=== PATIENT | male | born 1935 | race Caucasian/White ===

== ENCOUNTER 2017-08-27 19:58 | Emergency (ER) | payer MEDICARE, OTHER ==
[~2017-08-27] VITALS: Ht 177.8 cm; Wt 102.1 kg
--- NOTE | ~2017-08-27 | EKG ---
[place], [place] ELECTROCARDIOGRAM REPORT NAME: JACY GIORN UNIT #: [id number] ROOM: DOCTOR: EPIPHANY DRAFT REPORT BIRTHDATE: [birth year] [facility] Test Date: 2017-08-27 Test Time: 20:26:53 Pat Name: JACY GIRON Department: ER Room: 2 Gender: M Head Banquet Waiter/Waitress: : [id number] Requested By: ARMANI WOODWARD Order Number: [id number] Reading MD: Ozzie Lake MD Measurements Intervals [place] Rate: 89 P: [place]: QRS: -18 QRSD: 99 T: 31 QT: 372 QTc: 453 Interpretive Statements Atrial fibrillation Inferior infarct, old Electronically Signed On 08-29-2017 11:08:08 PDT by Ozzie Lake MD CM:EKGRPT:ELECTROCARDIOGRAM REPORT 25 1108 ARMANI WOODWARD MD EPIPHANY DRAFT REPORT ARMANI WOODWARD MD
[~2017-08-27 19:58] MED LIST: CLARITIN10 MG PO; EPI EZ PEN1 MG/ML IM
[2017-08-27 20:37] LABS: BASO % 0.6 % (0.0-1.0); EOS # 0.2 10*3/uL (0.0-0.4); EOS % 2.6 % (1.0-4.0); HEMATOCRIT 43.4 % (42.0-52.0); HEMOGLOBIN 14.3 g/dl (14.0-18.0); LYMPH # 1.8 10*3/uL (1.3-4.4); LYMPH % 25.3 % (27.0-41.0); MEAN CELL VOLUME 93.7 fl (80.0-94.0); MEAN CORPUSCULAR HGB 30.9 pg (27.0-31.0); MEAN CORPUSCULAR HGB CONC 32.9 g/dl (33.0-37.0); MEAN PLATELET VOLUME 9.7 fl (9.6-12.3); MONO # 0.7 10*3/uL (0.1-1.0); MONO % 9.7 % (3.0-9.0); NEUT # 4.3 10*3/uL (2.3-7.9); NEUT % 61.5 % (47.0-73.0); PLATELET COUNT AUTOMATED 156 10*3/uL (130-400); RED BLOOD COUNT 4.63 10*6/uL (4.50-5.90); RED CELL DISTRI WIDTH 13.3 % (0-14.5)
[2017-08-27 20:53] LABS: ALBUMIN 3.6 gm/dl (3.1-4.5); ALKALINE PHOSPHATASE 75 U/L (45-117); BUN 32 mg/dl (7-24); CHLORIDE 101 mmol/L (98-107); CREATININE 1.48 mg/dL (0.70-1.30); POTASSIUM 3.8 mmol/L (3.5-5.1); SGOT/AST 17 IU/L (3-35); SGPT/ALT 19 U/L (12-78); SODIUM 140 mmol/L (136-145); TOTAL PROTEIN 7.5 gm/dL (6.4-8.2)
[2017-08-27 20:54] LABS: TROPONIN I < 0.015 ng/ml (<0.045)
== END 2017-08-27 22:19 | disposition home or self-care (01) ==
LOC: ED 19:58
PROVIDERS: Emergency Medicine Emergency Medical Services
DX: S40.022A Contusion of left upper arm, initial encounter (principal); S80.212A Abrasion, left knee, initial encounter; I48.91 Unspecified atrial fibrillation; Z79.02 Long term (current) use of antithrombotics/antiplatelets; Z91.040 Latex allergy status; W01.0XXA Fall on same level from slipping, tripping and stumbling without subsequent striking against object, initial encounter; Y93.89 Activity, other specified; Y92.481 Parking lot as the place of occurrence of the external cause; Y99.8 Other external cause status

== ENCOUNTER 2020-09-08 02:04 | Inpatient (IN) | payer MEDICARE, OTHER ==
[~2020-09-08] VITALS: Ht 167.6 cm; Wt 105.4 kg
[2020-09-08 02:09] VITALS: BP 169/78
[2020-09-08 02:32] VITALS: BP 156/74
[2020-09-08 03:00] LABS: BASO % 0.4 % (0.0-1.0); EOS # 0.4 10*3/uL (0.0-0.4); HEMATOCRIT 41.6 % (42.0-52.0); LYMPH # 2.1 10*3/uL (1.3-4.4); LYMPH % 29.8 % (27.0-41.0); MEAN CELL VOLUME 96.3 fl (80.0-94.0); MEAN CORPUSCULAR HGB 31.3 pg (27.0-31.0); MEAN CORPUSCULAR HGB CONC 32.5 g/dl (33.0-37.0); MONO # 0.8 10*3/uL (0.1-1.0); MONO % 11.9 % (3.0-9.0); NEUT # 3.7 10*3/uL (2.3-7.9); NEUT % 52.5 % (47.0-73.0); PLATELET COUNT AUTOMATED 146 10*3/uL (130-400); RED BLOOD COUNT 4.32 10*6/uL (4.50-5.90); RED CELL DISTRI WIDTH 13.8 % (0-14.5)
[2020-09-08 03:26] VITALS: BP 146/67
[2020-09-08 03:29] LABS: ALBUMIN 3.3 gm/dl (3.1-4.5); ALKALINE PHOSPHATASE 81 U/L (45-117); BUN 28 mg/dl (7-24); CHLORIDE 107 mmol/L (98-107); POTASSIUM 3.8 mmol/L (3.5-5.1); SGOT/AST 15 IU/L (3-35); SGPT/ALT 15 U/L (12-78); SODIUM 140 mmol/L (136-145); TOTAL PROTEIN 7.2 gm/dL (6.4-8.2)
[2020-09-08 03:33] LABS: TROPONIN I < 0.015 ng/ml (<0.045)
[2020-09-08] MEDS ORDERED: TIMOLOL 5 ML5 ML OPH (05:40)
[2020-09-08] MEDS ORDERED: LATANOPROST2.5 ML OU (05:44)
[2020-09-08] MEDS ORDERED: Coumadin2.5 MG PO (05:45)
[2020-09-08] MEDS ORDERED: LASIX40 MG PO (05:45)
[2020-09-08] MEDS ORDERED: LOPRESSOR25 MG PO (05:46)
[2020-09-08 06:26] LABS: ACT PARTIAL THROMBO TIME 31.7 SECONDS (20.0-32.1); INTERNATIONAL NORM RATIO 1.9 (2.0-3.5)
[2020-09-08 06:29] LABS: FREE T4 0.88 ng/dl (0.76-1.46); THYROID STIM HORMONE (HS) 3.62 uIU/ml (0.358-4.75)
[2020-09-08 08:05] VITALS: BP 174/60
[2020-09-08 08:37] LABS: VITAMIN D, 25-HYDROXY 25.6 ng/mL (30-100)
[2020-09-08 10:55] VITALS: BP 134/89
[2020-09-08] MEDS ORDERED: IMDUR SA30 MG PO ×2 (13:28→13:30)
== END 2020-09-08 13:44 | disposition home or self-care (01) | DRG 392 ==
LOC: ED 02:04 → EDHOLD 03:46 → 5E 04:32
PROVIDERS: Emergency Medicine; Internal Medicine; ADMIT Internal Medicine; ATTEND Internal Medicine
DX: K21.9 Gastro-esophageal reflux disease without esophagitis (principal); I48.20 Chronic atrial fibrillation, unspecified; I25.10 Atherosclerotic heart disease of native coronary artery without angina pectoris; R00.1 Bradycardia, unspecified; D64.9 Anemia, unspecified; N18.31 Chronic kidney disease, stage 3a; I12.9 Hypertensive chronic kidney disease with stage 1 through stage 4 chronic kidney disease, or unspecified chronic kidney disease; E78.5 Hyperlipidemia, unspecified; R73.9 Hyperglycemia, unspecified; R07.89 Other chest pain; I25.2 Old myocardial infarction; Z79.82 Long term (current) use of aspirin; Z79.899 Other long term (current) drug therapy; Z95.5 Presence of coronary angioplasty implant and graft; Z84.89 Family history of other specified conditions; Z68.33 Body mass index [BMI] 33.0-33.9, adult

== ENCOUNTER 2022-04-21 14:00 | Emergency (ER) | payer MEDICARE, OTHER ==
[~2022-04-21] VITALS: Ht 177.8 cm; Wt 104.3 kg
[~2022-04-21 14:00] MED LIST changes: +Coumadin2.5 MG PO; +IMDUR SA30 MG PO; +LASIX40 MG PO; +LATANOPROST2.5 ML OU; +LOPRESSOR25 MG PO; +TIMOLOL 5 ML5 ML OPH
[2022-04-21] MEDS ORDERED: CYCLOBENZAPRINE10 MG PO (15:08)
[2022-04-21] MEDS ORDERED: TRAMADOL HCL50 MG PO (15:08)
== END 2022-04-21 15:25 | disposition home or self-care (01) ==
LOC: ED 14:00
DX: M54.50 Low back pain, unspecified (principal); Z98.890 Other specified postprocedural states

== ENCOUNTER 2024-11-02 11:13 | Inpatient (IN) | payer MEDICARE, OTHER ==
[2024-11-02] VITALS (7 sets, daily range): BP systolic 126–194; BP diastolic 45–97
[~2024-11-02] VITALS: Ht 177.8 cm; Wt 110.9 kg
[~2024-11-02 11:13] MED LIST changes: +CYCLOBENZAPRINE10 MG PO; +TRAMADOL HCL50 MG PO
[2024-11-02] MEDS ORDERED: Vancomycin Hydrochloride 1,000 MG VIAL IV SCH (12:00)
[2024-11-02 12:32] LABS: BASO # 0.0 10*3/uL (0.0-0.1); BASO % 0.2 % (0.0-1.0); EOS # 0.3 10*3/uL (0.0-0.4); EOS % 3.6 % (1.0-4.0); MEAN CELL VOLUME 95.1 fl (80.0-94.0); MEAN CORPUSCULAR HGB 29.5 pg (27.0-31.0); MEAN PLATELET VOLUME 9.5 fl (9.6-12.3); MONO # 1.1 10*3/uL (0.1-1.0); MONO % 12.0 % (3.0-9.0); NEUT # 6.2 10*3/uL (2.3-7.9); NEUT % 70.4 % (47.0-73.0); NUCLEATED RED BLOOD CELL 0.0 % (0.0-0.0); NUCLEATED RED BLOOD CELL 0.0 10*3/uL (0.0-0.0); PLATELET COUNT AUTOMATED 154 10*3/uL (130-400); RED CELL DISTRI WIDTH 16.6 % (0-14.5)
[2024-11-02 12:43] LABS: ACT PARTIAL THROMBO TIME 33.6 SECONDS (20.0-32.1)
[2024-11-02 13:07] LABS: BUN 19 mg/dl (9-23); SGPT/ALT 10 U/L (5-49)
[2024-11-02] MEDS ORDERED: BISACODYL 5 MG TAB PO PRN (13:30)
[2024-11-02] MEDS ORDERED: ACETAMINOPHEN 325 MG TAB PO PRN (13:30)
[2024-11-02] MEDS ORDERED: Acetaminophen/Hydrocodone 5 MG/325 MG TABLET PO PRN (13:30)
[2024-11-02] MEDS ORDERED: ACETAMINOPHEN 650 MG SUPP R PRN (13:30)
[2024-11-02] MEDS ORDERED: BISACODYL 10 MG SUPP R PRN (13:30)
[2024-11-02] MEDS ORDERED: Ondansetron Hydrochloride 4 MG/2 ML VIAL IV PRN (13:30)
[2024-11-02] MEDS ORDERED: ASPIRIN ADULT L81 M2 PO (15:15)
[2024-11-02] MEDS ORDERED: Coumadin3 MG PO (15:22)
[2024-11-02] MEDS ORDERED: ALDACTONE25 M1 PO (15:22)
[2024-11-02] MEDS ORDERED: LIPITOR10 MG PO (15:25)
[2024-11-02] MEDS ORDERED: HYDROCODONE-AC1 EAC1 PO (15:25)
[2024-11-02] MEDS ORDERED: PROBIOTIC250 MG PO (15:26)
[2024-11-02] MEDS ORDERED: ACETAMINOPHEN500 M4 PO (15:29)
[2024-11-02] MEDS ORDERED: Ondansetron4 MG PO (15:31)
[2024-11-02] MEDS ORDERED: ARTHRITIS PAIN150 G1 T (15:31)
[2024-11-02] MEDS ORDERED: MIRALAX POWDER17 G1 PO (15:32)
[2024-11-02 17:57] LABS: BILIRUBIN Negative (Negative); BLOOD 2+ (Negative); CLARITY Clear (Clear); COLOR Yellow (Yellow); KETONE Negative (Negative); LEUKO ESTERASE Negative (Negative); NITRITE Negative (Negative); PH 6.0 (4.5-8.0); SPECIFIC GRAVITY 1.025 (1.001-1.030); UROBILINOGEN 0.2 E.U./dl (0.0-1.0)
[2024-11-02 18:46] LABS: BACTERIA 1+; RBC 21-30 rbc/hpf (0-2)
[2024-11-02] MEDS ORDERED: TOPROL XL25 MG PO (23:00)
[2024-11-02] MEDS ORDERED: DICLOFENAC SODIUM 100 GM TUBE T PRN (23:00)
[2024-11-03] VITALS (15 sets, daily range): BP systolic 115–160; BP diastolic 41–84
[2024-11-03 06:15] LABS: BASO # 0.0 10*3/uL (0.0-0.1); BASO % 0.4 % (0.0-1.0); EOS # 0.3 10*3/uL (0.0-0.4); EOS % 4.6 % (1.0-4.0); MEAN CELL VOLUME 92.9 fl (80.0-94.0); MEAN CORPUSCULAR HGB 29.4 pg (27.0-31.0); MEAN PLATELET VOLUME 10.0 fl (9.6-12.3); MONO # 0.9 10*3/uL (0.1-1.0); MONO % 12.1 % (3.0-9.0); NEUT # 5.2 10*3/uL (2.3-7.9); NEUT % 69.4 % (47.0-73.0); NUCLEATED RED BLOOD CELL 0.0 % (0.0-0.0); NUCLEATED RED BLOOD CELL 0.0 10*3/uL (0.0-0.0); PLATELET COUNT AUTOMATED 146 10*3/uL (130-400); RED CELL DISTRI WIDTH 16.6 % (0-14.5)
[2024-11-03 06:26] LABS: ACT PARTIAL THROMBO TIME 35.8 SECONDS (20.0-32.1)
[2024-11-03 06:33] LABS: BUN 17 mg/dl (9-23); FREE T4 1.00 ng/dl (0.89-1.76); SGPT/ALT 10 U/L (5-49)
[2024-11-03] MEDS ORDERED: SODIUM CHLORIDE 0.9% 1,000 ML IV ONE (07:10)
[2024-11-03] MEDS ORDERED: ASPIRIN ENTERIC COATED 81 MG TAB PO SCH (10:00)
[2024-11-03] MEDS ORDERED: METOPROLOL SUCCINATE XR 25 MG TAB PO SCH (10:00)
[2024-11-03] MEDS ORDERED: SPIRONOLACTONE 25 MG TAB PO SCH (10:00)
[2024-11-03] MEDS ORDERED: SODIUM CHLORIDE 0.9% 500 ML IV ONE (12:10)
[2024-11-03] MEDS ORDERED: Albuterol Sulf/Ipratropium 3 ML VIAL NEB ONE ×2 (12:45→13:07)
[2024-11-03] MEDS ORDERED: Lactated Ringer's Solution 0 ML IV ONE (12:57)
[2024-11-03] MEDS ORDERED: Vancomycin Hydrochloride 1,000 MG VIAL ONE (14:00)
[2024-11-03] MEDS ORDERED: PROPOFOL 200 MG/20 ML VIAL IV ONE (15:12)
[2024-11-03] MEDS ORDERED: SEVOFLURANE 250 ML BOT INH ONE (15:12)
[2024-11-03] MEDS ORDERED: Lidocaine Hydrochloride 2% 5 ML SDV IV ONE (15:12)
[2024-11-03] MEDS ORDERED: ATORVASTATIN CALCIUM 10 MG TAB PO SCH (22:00)
[2024-11-04] VITALS: BP 140/67
[2024-11-04 08:00] VITALS: BP 138/60
[2024-11-04] MEDS ORDERED: Vitamin D 1,000 IU TAB (25 MCG) PO SCH (10:00)
[2024-11-04 12:00] VITALS: BP 132/78
[2024-11-04 14:08] LABS: ACID FAST SPEC PROCESSING Tissue Grinding (.)
[2024-11-04 14:08] LABS: ACID FAST SPEC PROCESSING Tissue Grinding (.)
[2024-11-04 14:08] LABS: ACID FAST SPEC PROCESSING Tissue Grinding (.)
[2024-11-04 16:00] VITALS: BP 147/58
[2024-11-04] MEDS ORDERED: WARFARIN SODIUM 3 MG TAB PO SCH (18:00)
[2024-11-04 20:00] VITALS: BP 140/54
[2024-11-05] VITALS: BP 123/52
[2024-11-05 08:00] VITALS: BP 148/66
[2024-11-05 12:00] VITALS: BP 135/73
[2024-11-05 16:00] VITALS: BP 137/58
[2024-11-05 20:00] VITALS: BP 152/47
[2024-11-06] VITALS: BP 135/58
[2024-11-06 08:00] VITALS: BP 142/63
[2024-11-06 10:13] LABS: BASO # 0.0 10*3/uL (0.0-0.1); BASO % 0.4 % (0.0-1.0); EOS # 0.3 10*3/uL (0.0-0.4); EOS % 3.1 % (1.0-4.0); MEAN CELL VOLUME 93.7 fl (80.0-94.0); MEAN CORPUSCULAR HGB 28.7 pg (27.0-31.0); MEAN PLATELET VOLUME 10.4 fl (9.6-12.3); MONO # 1.4 10*3/uL (0.1-1.0); MONO % 12.9 % (3.0-9.0); NEUT # 7.5 10*3/uL (2.3-7.9); NEUT % 71.9 % (47.0-73.0); NUCLEATED RED BLOOD CELL 0.0 % (0.0-0.0); NUCLEATED RED BLOOD CELL 0.0 10*3/uL (0.0-0.0); PLATELET COUNT AUTOMATED 151 10*3/uL (130-400); RED CELL DISTRI WIDTH 16.1 % (0-14.5)
[2024-11-06 10:18] LABS: BUN 15 mg/dl (9-23)
[2024-11-06] MEDS ORDERED: WARFARIN SODIUM 1 MG TAB PO ONE (11:15)
[2024-11-06 12:00] VITALS: BP 121/52
[2024-11-06 16:00] VITALS: BP 122/56
[2024-11-06] MEDS ORDERED: WARFARIN SODIUM 4 MG TAB PO SCH (18:00)
[2024-11-06 20:00] VITALS: BP 118/48
[2024-11-07] VITALS: BP 137/65
[2024-11-07 06:20] LABS: BUN 17 mg/dl (9-23)
[2024-11-07 06:21] LABS: BASO # 0.0 10*3/uL (0.0-0.1); BASO % 0.5 % (0.0-1.0); EOS # 0.4 10*3/uL (0.0-0.4); EOS % 5.0 % (1.0-4.0); MEAN CELL VOLUME 92.4 fl (80.0-94.0); MEAN CORPUSCULAR HGB 28.6 pg (27.0-31.0); MEAN PLATELET VOLUME 10.1 fl (9.6-12.3); MONO # 0.8 10*3/uL (0.1-1.0); MONO % 9.5 % (3.0-9.0); NEUT # 6.5 10*3/uL (2.3-7.9); NEUT % 73.7 % (47.0-73.0); NUCLEATED RED BLOOD CELL 0.0 % (0.0-0.0); NUCLEATED RED BLOOD CELL 0.0 10*3/uL (0.0-0.0); PLATELET COUNT AUTOMATED 165 10*3/uL (130-400); RED CELL DISTRI WIDTH 15.8 % (0-14.5)
[2024-11-07 08:00] VITALS: BP 144/71
[2024-11-07] MEDS ORDERED: WARFARIN SODIUM 2 MG TAB PO ONE (08:45)
[2024-11-07 12:00] VITALS: BP 133/62
[2024-11-07 16:00] VITALS: BP 144/73
[2024-11-07] MEDS ORDERED: WARFARIN SODIUM 4 MG TAB PO SCH (18:00)
[2024-11-07 20:00] VITALS: BP 145/63
[2024-11-08] VITALS: BP 127/66
[2024-11-08 06:44] LABS: BASO # 0.0 10*3/uL (0.0-0.1); BASO % 0.3 % (0.0-1.0); EOS # 0.4 10*3/uL (0.0-0.4); EOS % 4.9 % (1.0-4.0); MEAN CELL VOLUME 91.1 fl (80.0-94.0); MEAN CORPUSCULAR HGB 28.8 pg (27.0-31.0); MEAN PLATELET VOLUME 9.5 fl (9.6-12.3); MONO # 1.0 10*3/uL (0.1-1.0); MONO % 11.2 % (3.0-9.0); NEUT # 5.9 10*3/uL (2.3-7.9); NEUT % 68.3 % (47.0-73.0); NUCLEATED RED BLOOD CELL 0.0 % (0.0-0.0); NUCLEATED RED BLOOD CELL 0.0 10*3/uL (0.0-0.0); PLATELET COUNT AUTOMATED 175 10*3/uL (130-400); RED CELL DISTRI WIDTH 15.9 % (0-14.5)
[2024-11-08 07:02] LABS: BUN 18 mg/dl (9-23)
[2024-11-08 08:00] VITALS: BP 126/59
[2024-11-08 12:00] VITALS: BP 123/62
[2024-11-08 16:00] VITALS: BP 124/64
[2024-11-08 20:00] VITALS: BP 145/83
[2024-11-09] VITALS: BP 138/60
[2024-11-09 06:29] LABS: BASO # 0.1 10*3/uL (0.0-0.1); BASO % 0.5 % (0.0-1.0); EOS # 0.5 10*3/uL (0.0-0.4); EOS % 5.0 % (1.0-4.0); MEAN CELL VOLUME 91.6 fl (80.0-94.0); MEAN CORPUSCULAR HGB 28.7 pg (27.0-31.0); MEAN PLATELET VOLUME 9.4 fl (9.6-12.3); MONO # 0.9 10*3/uL (0.1-1.0); MONO % 9.0 % (3.0-9.0); NEUT # 7.1 10*3/uL (2.3-7.9); NEUT % 72.0 % (47.0-73.0); NUCLEATED RED BLOOD CELL 0.0 % (0.0-0.0); NUCLEATED RED BLOOD CELL 0.0 10*3/uL (0.0-0.0); PLATELET COUNT AUTOMATED 189 10*3/uL (130-400); RED CELL DISTRI WIDTH 15.6 % (0-14.5)
[2024-11-09 06:43] LABS: BUN 19 mg/dl (9-23)
[2024-11-09 08:00] VITALS: BP 156/73
[2024-11-09] MEDS ORDERED: VITAMIN D325 MCG PO (11:00)
[2024-11-09] MEDS ORDERED: AMOX-CLAV 875-1 EACH PO (11:00)
[2024-11-09] MEDS ORDERED: LEVOFLOXACIN750 M2 PO (11:00)
[2024-11-09] MEDS ORDERED: Vitamin D (1,000 UNI PO (11:00)
[2024-11-09 12:00] VITALS: BP 127/52
[2024-11-09 16:00] VITALS: BP 125/59
[2024-11-09 20:00] VITALS: BP 151/62
[2024-11-09] MEDS ORDERED: MICONAZOLE NITRATE 2% 75 GM BOT T SCH (22:00)
[2024-11-10] VITALS: BP 140/80
[2024-11-10 08:00] VITALS: BP 136/59
[2024-11-10 08:24] LABS: BASO # 0.1 10*3/uL (0.0-0.1); BASO % 0.5 % (0.0-1.0); EOS # 0.5 10*3/uL (0.0-0.4); EOS % 5.2 % (1.0-4.0); MEAN CELL VOLUME 91.3 fl (80.0-94.0); MEAN CORPUSCULAR HGB 28.7 pg (27.0-31.0); MEAN PLATELET VOLUME 9.2 fl (9.6-12.3); MONO # 0.9 10*3/uL (0.1-1.0); MONO % 9.0 % (3.0-9.0); NEUT # 6.8 10*3/uL (2.3-7.9); NEUT % 72.6 % (47.0-73.0); NUCLEATED RED BLOOD CELL 0.0 % (0.0-0.0); NUCLEATED RED BLOOD CELL 0.0 10*3/uL (0.0-0.0); PLATELET COUNT AUTOMATED 195 10*3/uL (130-400); RED CELL DISTRI WIDTH 15.4 % (0-14.5)
[2024-11-10 08:47] LABS: BUN 17 mg/dl (9-23)
[2024-11-10 12:00] VITALS: BP 123/64
== END 2024-11-10 14:45 | DRG 478 ==
LOC: ED 11:13 → 5E 12:39 → EDHOLD 12:39 → 5E 19:33
PROVIDERS: Nurse Practitioner; Student in an Organized Health Care Education/Training Program; ADMIT Internal Medicine; ATTEND Internal Medicine
PROC: 0QBP0ZX Excision of Left Metatarsal, Open Approach, Diagnostic (ICD-10-PCS; principal; 2024-11-03)
PROC: 30233K1 Transfusion of Nonautologous Frozen Plasma into Peripheral Vein, Percutaneous Approach (ICD-10-PCS; 2024-11-03)
PROC: 0QBP0ZX Excision of Left Metatarsal, Open Approach, Diagnostic (ICD-10-PCS; 2024-11-03)
DX: M86.8X7 Other osteomyelitis, ankle and foot (principal); E44.0 Moderate protein-calorie malnutrition; L03.116 Cellulitis of left lower limb; I50.22 Chronic systolic (congestive) heart failure; I13.0 Hypertensive heart and chronic kidney disease with heart failure and stage 1 through stage 4 chronic kidney disease, or unspecified chronic kidney disease; F03.90 Unspecified dementia, unspecified severity, without behavioral disturbance, psychotic disturbance, mood disturbance, and anxiety; E78.2 Mixed hyperlipidemia; B95.2 Enterococcus as the cause of diseases classified elsewhere; B96.20 Unspecified Escherichia coli [E. coli] as the cause of diseases classified elsewhere; B87.89 Myiasis of other sites; I73.9 Peripheral vascular disease, unspecified; G89.29 Other chronic pain; I48.91 Unspecified atrial fibrillation; I25.10 Atherosclerotic heart disease of native coronary artery without angina pectoris; N18.31 Chronic kidney disease, stage 3a; Z79.899 Other long term (current) drug therapy; Z79.01 Long term (current) use of anticoagulants; Z79.2 Long term (current) use of antibiotics; Z95.5 Presence of coronary angioplasty implant and graft; Z95.0 Presence of cardiac pacemaker; Z84.89 Family history of other specified conditions; Z86.718 Personal history of other venous thrombosis and embolism; I25.2 Old myocardial infarction; Z68.35 Body mass index [BMI] 35.0-35.9, adult